=== PATIENT | female | born 1995 | race Caucasian/White ===

== ENCOUNTER 2017-05-01 12:02 | Emergency (ER) | payer BC ==
[~2017-05-01] VITALS: Wt 63.9 kg
[2017-05-01] MEDS ORDERED: ALBUTEROL 0.083% (NEB) 2.5 MG/3 ML AMP HHN STA (13:42)
--- NOTE | 2017-05-01 13:42 | ERD ---
ER Documentation Chief Complaint Chief Complaint COUGH, SOB, NO FEVER, HX OF ASTHMA HPI 22-year-old female who presents emergency department for cough, shortness of breath. Stated that last Thursday, she had a productive cough. Also added that her albuterol Nebules and inhaler is not working at home. LMP: 04/11/2017. A0. Denies headache, dizziness, blurred vision, neck pain, throat pain, difficulty swallowing, loss of appetite, shoulder pain, chest pain, back pain, abdominal pain, nausea, vomiting, urinary symptoms, constipation, diarrhea, or possibility of being , loss of bowel and bladder control, changes in bowel and bladder habits, recent long travel, difficulty breathing when lying flat, recent exposure to any illness, recent antibiotic use in the last 3 months , fever, chills. No known drug allergies. Past medical history of asthma. No surgical history. Medication: Albuterol inhaler and nebulizers, [place]. 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 Occasional drinks alcoholic beverages. Denies smoking cigarettes, use of illegal drugs. ROS All systems reviewed and are negative except as per history of present illness. Medications Home Meds Active Scripts Acetaminophen* (Tylophen*) 500 Mg Capsule, 1 CAP PO Q6H Y for PAIN AND OR ELEVATED TEMP, #20 CAP Prov:HILARIA SIDHU 05/01/17 Albuterol Sulfate* (Proair HFA*) 8.5 Gm Hfa.aer.ad, 2 PUFF INH Q4, #1 INHALER Prov:TRINAVELMANATASHANISSA Castro 05/01/17 Prednisone* (Prednisone*) 20 Mg Tab, 40 MG PO DAILY for 4 Days, TAB Prov:HILARIA SIDHU 05/01/17 Albuterol Sulfate* (Albuterol Sulfate* Neb) 0.083%-3 Ml Neb, 2.5 MG NEB Q4 Y for SHORTNESS OF BREATH, #30 EA Prov:HILARIA SIDHU 05/01/17 Amoxicillin/Potassium Clav (Amox-Clav 875-125 mg Tablet) 875-125 mg Tab, 1 TAB PO BID for 7 Days, #14 TAB Prov:TRINAVELMANATASHANISSA Castro 05/01/17 Allergies Allergies: Coded Allergies: No Known Allergy (Unverified , 05/01/17) Physical Exam Vitals Vital Signs Date Time Temp Pulse Resp B/P Pulse Ox O2 Delivery O2 Flow Rate FiO2 05/01/17 14:50 98.9 73 16 118/73 99 Room Air 05/01/17 14:16 85 17 97 21 05/01/17 12:07 99.2 85 17 120/61 97 Physical Exam Const: [] Head: Atraumatic Eyes: Normal Conjunctiva. No pain on eye movement. ENT: Normal External Ears, Nose and Mouth. Right ear is unremarkable. Left ear: TM is erythematous. No bleeding. No discharge on bilateral ears. No hearing loss bilaterally. Throat: Uvula is in midline and not displaced. Tonsils are +1 bilaterally without redness and without exudates. Tolerating secretions. Patent airway. Speaks full and clear sentences. Neck: Full range of motion..~ No meningismus. No signs of meningeal irritation. Resp: Mild wheezing bilaterally. Cardio: Regular rate and rhythm, no murmurs Abd: Soft, non tender, non distended. Normal bowel sounds Skin: No petechiae or rashes Back: No midline or flank tenderness Ext: No cyanosis, or edema Neur: Awake and alert Psych: Normal Mood and Affect Results 24 hrs Current Medications Medications (Trade) Dose Ordered Sig/Sherrie Route PRN Reason Start Time Stop Time Status Last Admin Dose Admin Methylprednisolone Sodium Succinate (Solu-Medrol) 125 mg ONCE ONCE IM 05/01/17 14:00 05/01/17 14:01 DC 05/01/17 13:52 Albuterol (Proventil 0.083% (Neb)) 5 mg ONCE STAT N 05/01/17 13:42 05/01/17 13:43 DC 05/01/17 14:09 Ipratropium [place] (Atrovent 0.02% (Neb)) 0.5 mg ONCE ONCE HHN 05/01/17 14:00 05/01/17 14:01 DC 05/01/17 14:09 Procedures/MDM 22-year-old female who presents emergency department for cough, shortness of breath. Stated that last Thursday, she had a productive cough. Also added that her albuterol Nebules and inhaler is not working at home. LMP: 04/11/2017. A0. Denies headache, dizziness, blurred vision, neck pain, throat pain, difficulty swallowing, loss of appetite, shoulder pain, chest pain, back pain, abdominal pain, nausea, vomiting, urinary symptoms, constipation, diarrhea, or possibility of being , loss of bowel and bladder control, changes in bowel and bladder habits, recent long travel, difficulty breathing when lying flat, recent exposure to any illness, recent antibiotic use in the last 3 months , fever, chills. No known drug allergies. Past medical history of asthma. No surgical history. Medication: Albuterol inhaler and nebulizers, [place]. 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 Occasional drinks alcoholic beverages. Denies smoking cigarettes, use of illegal drugs. Physical exam: Extraocular movement of her eyes is within normal limits. No pain in eye movement. No visual field loss. Right ear is unremarkable. Left ear: TM is erythematous. No bleeding. No discharge on bilateral ears. No hearing loss bilaterally. Throat: Uvula is in midline and not displaced. Tonsils are +1 bilaterally without redness and without exudates. Tolerating secretions. Patent airway. Speaks full and clear sentences. No signs of meningeal irritation. Respirations even and unlabored. Mild wheezing bilaterally. No abdominal tenderness. Disease process was explained to the patient and family member. They verbalized understanding and agreed with the treatment, plan of care. Treatment: Solu-Medrol IM. Albuterol and Atrovent breathing treatment. Reevaluation: Denies headache, dizziness, blurry vision, neck pain, shoulder pain, chest pain, back pain, abdominal pain, nausea, vomiting. No episode of emesis in the emergency department. Alert and oriented 4. Speaks full and clear sentences. No signs of meningeal irritation. Respirations even and unlabored. Lung sounds clear to auscultation. Active bowel sounds. There is no right upper/right lower/epigastric/left upper/left lower abdominal tenderness and light and deep palpation. Negative on Rovsings sign. Negative Marco sign. Able to jump 5 times without developing right-sided abdominal pain. No peritoneal signs. Ambulatory with steady gait. No neurovascular deficits. No neurological deficits. Romberg test is negative. Differential diagnosis: Status asthmaticus versus Asthma exacerbation versus asthmatic bronchitis versus asthma attack versus pneumonia versus bronchitis Final diagnosis: Asthma exacerbation and asthmatic bronchitis, otitis media Prescription: Prednisone. Pro-air. Albuterol Nebules. Augmentin. Follow-up with PCP in the next 24-48 hours. Come back here in the emergency department for any new symptoms or any worsening of symptoms. All questions and concerns are answered. Patient verbalized understanding and agreed with the plan of care. Hemodynamically stable on discharge. Departure Diagnosis: Primary Impression: Asthmatic bronchitis Additional Impressions: Asthma exacerbation Otitis media Condition: Stable Additional Instructions: Follow-up with PCP in the next 24-48 hours. Come back here in the emergency department for any new symptoms or any worsening of symptoms. All questions and concerns are answered. Patient verbalized understanding and agreed with the plan of care. HILARIA SIDHU May 01, 2017 13:42
[2017-05-01] MEDS ORDERED: ALBU8.5H3 INH (13:44)
[2017-05-01] MEDS ORDERED: AMOX1TAB10 PO (13:44)
[2017-05-01] MEDS ORDERED: PRED20TA PO (13:44)
[2017-05-01] MEDS ORDERED: ALBU2.5V3 NEB (13:44)
[2017-05-01] MEDS ORDERED: ACET500C5 PO (13:45)
[2017-05-01] MEDS ORDERED: IPRATROPIUM (NEB) 0.5 MG/2.5 ML AMP HHN ONE (14:00)
[2017-05-01] MEDS ORDERED: METHYLPREDNISOLONE 125 MG INJ IM ONE (14:00)
[2017-05-01 14:50] VITALS: BP 118/73; PULSE 73; RESP 16; TEMP 98.9
== END 2017-05-01 14:50 | disposition home or self-care (01) ==
LOC: FTE 12:02
DX: J45.901 Unspecified asthma with (acute) exacerbation (principal); J20.9 Acute bronchitis, unspecified; H66.92 Otitis media, unspecified, left ear
CPT/HCPCS: 94664; 96372; 99284; J2930